=== PATIENT | male | born 1965 | race Caucasian/White ===

== ENCOUNTER 2019-06-23 13:26 | Emergency (ER) | payer OTHER, SELFPAY ==
--- NOTE | ~2019-06-23 | CT_ITS ---
EXAMINATION: CT abdomen pelvis w con EXAM DATE: 06/23/2019 15:38 INDICATION: Upper abdominal pain. Severe and recurrent. Intermittent symptoms for one year. TECHNIQUE: Spiral CT of the abdomen and pelvis was performed following intravenous injection of 100 m L Omnipaque 350. Axial, coronal and sagittal images were reviewed. The dose-length product (DLP) fo r this examination was 687.73 mGy-cm. The exposure was tailored according to patient size (auto mA e xposure control), and iterative reconstruction (ASIR) was used as additional dose reduction technique . There is no prior study for comparison. FINDINGS: The liver, spleen, adrenal glands and pancreas are unremarkable. Gallbladder is unremarkab le. No biliary obstruction. Portal and splenic veins are patent. Kidneys enhance symmetrically. T here is no hydronephrosis. The prostate is unremarkable. The bladder is unremarkable. There is no retroperitoneal or pelvic lymphadenopathy. There is aortoiliac ectasia with scattered arterioscler otic disease. The appendix is normal. Possible gastric antral peptic ulcer disease. There is expected amount of c olonic stool. There is mild scattered colonic diverticulosis. There is no adjacent inflammatory fay ge to suggest diverticulitis. The heart is normal in size. There are no pericardial or pleural effus ions. The lung bases are unremarkable. There are no osteoblastic or osteolytic lesions identified. IMPRESSION: 1. Possible gastric antral peptic ulcer disease. Reviewed, dictated and finalized at location B. OF DESIGN
[2019-06-23 13:55] VITALS: BP 136/78; PULSE 71; RESP 18; TEMP 36.6; O2SAT 100
[2019-06-23 14:35] LABS: Basophils Absolute Auto 0.07 K/mm3 (0.00-0.10); Basophils Percent Auto 0.8 % (0.0-1.0); Eosinophils Absolute Auto 0.15 K/mm3 (0.02-0.50); Eosinophils Percent Auto 1.8 % (1.0-6.0); Hematocrit 42.5 % (40.0-54.0); Hemoglobin 14.6 g/dL (14.0-18.0); Immature Granulocyte Absolute 0.03 K/mm3 (0.00-0.00); Immature Granulocyte Percent A 0.4 % (0.0-0.0); Lymphocytes Absolute Auto 2.39 K/mm3 (1.10-4.50); Mean Corpuscular HGB Conc 34.4 g/dL (32.0-36.0); Mean Corpuscular Hemoglobin 30.4 pg (27.0-31.0); Mean Corpuscular Volume 88.5 fL (78.0-102.0); Mean Platelet Volume 9.4 fl (8.7-11.0); Monocytes Percent Auto 4.7 % (2.0-11.0); Neutrophils Absolute Auto 5.5 K/mm3 (1.7-7.2); Neutrophils Percent Auto 64.3 % (50.0-70.0); Platelet Count Result 288 K/mm3 (150-420); Red Cell Distribution Width 12.5 % (11.6-14.4); White Blood Count 8.5 K/mm3 (4.8-10.8)
[2019-06-23 14:52] LABS: Alanine Aminotransferase 29 U/L (16-63); Albumin Level 4.3 g/dL (3.4-5.0); Alkaline Phosphatase 112 U/L (46-116); Amylase 57 U/L (25-115); Anion Gap 18.1 mmol/L (7-16); Aspartate Amino Transferase 19 U/L (15-37); Bilirubin,Total 0.5 mg/dL (0.00-1.00); Blood Urea Nitrogen 9 mg/dL (7-18); Calcium 8.5 mg/dL (8.5-10.1); Carbon Dioxide 23 mmol/L (21-32); Chloride 103 mmol/L (98-108); Estimated CRCL calculation 73 ml/min; Estimated Glomerular Filt Rate > 60; Glucose 105 mg/dL (70-99); Lipase 204 U/L (73-393); Osmolality Calculated 288 mOsm/kg (285-295); Potassium 4.1 mmol/L (3.5-5.1); Sodium 140 mmol/L (136-145); Total Protein 7.5 g/dL (6.4-8.2)
[2019-06-23 15:06] LABS: Add Urine Microscopic? YES; Appearance Urine Clear (Clear); Bilirubin Urine 1+ (Negative); Blood Urine Negative (Negative); Color Urine Amber (Yellow); Glucose Urine UA Negative (Negative); Ketones Urine Trace (Negative); Leukocyte Esterase Ur Negative LEU/UL (Negative); Nitrate Urine Negative (Negative); Protein Urine Trace (Negative); Specific Grav Ur 1.025 (1.010-1.020); Urobilinogen Urine 0.2 mg/dL (0.2-1.0)
--- NOTE | 2019-06-23 15:09 | ED.ABDPAIN ---
HPI - Abdominal Pain General Chief Complaint: Abdominal Pain Stated Complaint: abd pain History of Present Illness HPI narrative: this 54-year-old male complains upper mid and epigastric sharp abdominal pain which radiates into the mid back area. It is not associated with nausea vomiting diarrhea dysuria melena or hematochezia. He has had problems with the current symptoms for the last year so. He sometimes will go for months without symptoms. About 3 months ago he had pain for a couple days, then 2 weeks later another episode, but over the llast 3 weeks it has been occurring more frequently. Last night the pain was severe. It's made worse by laying supine; improves when laying prone on a pillow. Related Data Allergies Allergy/AdvReac Type Severity Reaction Status Date / Time No Known Allergies Allergy Verified 06/23/19 14:39 Review of Systems Constitutional: Constitutional: Reports no additional constitutional complaints, Denies anorexia and Denies fever(s) ENT: Denies dizziness Cardiovascular: Cardiovascular: Denies chest pain Respiratory: Respiratory: Denies cough and Denies dyspnea Gastrointestinal: Gastrointestinal: Reports as per HPI and Denies change in stool character Genitourinary: Genitourinary: Reports other Comments: Has had a swollen left testicle for years, no recent change. Musculoskeletal: Musculoskeletal: Denies joint swelling Integumentary/Breasts: Skin/Breast: Denies rash Neurologic: Reports focal weakness and Denies numbness Hematologic/Lymphatic: Hematologic/Lymphatic: Denies easy bruising PMFSH Past Medical History Medical History (Updated 06/23/19 @ 17:41 by Juliocesar Howard MD) Chronic low back pain GERD (gastroesophageal reflux disease) Shoulder pain with history of repair of rotator cuff Social History Social History (Updated 06/23/19 @ 17:42 by Juliocesar Howard MD) Years smoked: 30 Alcohol use details: rarely drinks Substance use: unknown Gender identity (if verbalized by the patient): Male Exam Const: General: cooperative and uncomfortable Nutritional Appearance: well nourished Orientation/consciousness: patient oriented x3 HENMT: Head: normal to inspection and atraumatic Ears: external ears normal General nose exam: Normal nares present Face and sinus: normal facial exam Mouth: Yes moist mucous membranes abnormal Throat: posterior oropharynx normal Neck: Neck: no lymphadenopathy noted Chest: Chest palpation & inspection: normal inspection of the chest Resp: Effort & Inspection: normal respiratory effort Auscultation: clear to auscultation bilaterally Cardio: Rate: regular rate Rhythm: regular rhythm GI: Inspection: no abdominal wall ecchymosis, non-distended and no scars GI Palp: Yes Soft to palpation, Yes Tenderness to palpation present (GI) (supraumbilical and epigastric), No Guarding due to palpation present (GI), No Rigid due to palpation and No Hernia present Auscultation: Hypoactive bowel sounds present Rectal Exam: deferred : Penis: Yes normal penis Meatus: meatus normal Testes: testicular mass (Firm 8 cm x 3 cm mass, left testicle. ) Back/Spine/Pelvis: Back: CVA tenderness Skin: General skin exam: normal color Neuro: General: patient oriented x3 Cognition (Neuro): normal cognition Course Course Emergency Course: Pain almost completely resolved with G.I. cocktail. Discussed the importance of follow up if worsening, seeing PCP in 3 - 5 days to evaluate response to PPI and further eval of cause of gastric ulcer. Also, possibility of testicular cancer and importance of having testicle evaluated. Ulcer healing measures discussed. Vital Signs Vital signs: Vital Signs Temperature 36.6 C 06/23/19 13:55 Pulse Rate 71 06/23/19 13:55 Respiratory Rate 18 06/23/19 13:55 Blood Pressure 136/78 06/23/19 13:55 Pulse Oximetry 100 06/23/19 13:55 Temperature 36.6 C 06/23/19 13:55 Pulse Rate 50 L 06/23/19 17:39
[2019-06-23 15:12] LABS: Bacteria Urine Trace /hpf; RBC Urine None seen /hpf (0-2); Squamous Epithelial Cell Urine Few /hpf (Few); WBC Urine None seen /hpf (0-3)
[2019-06-23 15:13] LABS: Mucus Urine Moderate /lpf
[2019-06-23] MEDS: ONDANSETRON INJ 4 MG/2 ML VIAL IV PUSH (15:19)
[2019-06-23] MEDS: MORPHINE SULFATE 4 MG/ML INJ IV PUSH (15:20)
[2019-06-23 15:21] LABS: CRP 1.2 mg/dL (0.0-0.9)
[2019-06-23 16:00] VITALS: BP 121/78; PULSE 48; RESP 18; O2SAT 99
--- NOTE | 2019-06-23 16:00 | PC.NURSE ---
Resting with NADN. Awaiting ct scan for dispo per ER physician.
--- NOTE | 2019-06-23 16:36 | PC.NURSE ---
Dr Howard at bedside.
[2019-06-23] MEDS: PANTOPRAZOLE SODIUM IV 40 MG VIAL IV PUSH (16:44)
[2019-06-23 17:39] VITALS: BP 116/74; PULSE 50; RESP 20; O2SAT 99
== END 2019-06-23 17:39 | disposition home or self-care (01) ==
PROVIDERS: Emergency Provider Family Medicine
DX: K25.3 Acute gastric ulcer without hemorrhage or perforation (principal)
CPT/HCPCS: 36415; 74177; 80053; 81001; 82150; 83690; 85025; 86140; 96374; 96375; 99283; 99284; A9270; C9113; J2270; J2405; Q9965